=== PATIENT | male | born 1935 | race Caucasian/White ===

== ENCOUNTER 2023-11-29 07:38 | Day surgery (SDC) | payer MEDICARE ==
[2023-11-29] MEDS ORDERED: DIPRIVAN 200 MG/20 ML IV ONE (09:53)
--- NOTE | 2023-11-29 11:41 | XRAY ---
17 seconds of fluoroscopy was used in surgery for a bilateral sacroiliac joint injection.
--- NOTE | 2023-11-29 11:41 | XRAY ---
Indication: Bilateral SI joint injection. Intraoperative fluoroscopy provided for 17 seconds. 2 digital spot images submitted for interpretation demonstrates posterior needle tips projecting over the expected left and right SI joint. Small amount of contrast injected for needle tip placement. Correlate with intraoperative findings/report.
[2023-11-29] MEDS ORDERED: Lactated Ringers 1,000 ML IV ONE (12:06)
== END 2023-11-29 10:20 | disposition home or self-care (01) ==
LOC: SDC-PAIN 07:38
PROVIDERS: ATTEND Psychiatry & Neurology Pain Medicine
DX: M46.1 Sacroiliitis, not elsewhere classified (principal); R73.03 Prediabetes
CPT/HCPCS: 01992; 27096; 72202; 77002; 82947; 99100; G0260; J2704; Q9966